=== PATIENT | female | born 1985 | race African-American/Black ===

== ENCOUNTER 2016-09-11 01:03 | Inpatient (IN) | payer OTHER ==
[~2016-09-11] VITALS: Ht 170.2 cm; Wt 131.5 kg
[~2016-09-11 01:03] MED LIST: HYDROXYZINE HCL50 M1 PO; PANTOPRAZOLE SO40 M1 PO; TOPAMAX50 M1 PO
--- NOTE | 2016-09-11 10:20 | Operative Report ---
Operative/Inv Procedure Report Surgery Date: 09/11/16 Name of Procedure: Laparoscopic Gastric Bypass Pre-Operative Diagnosis: Morbid Obesity BMI 46, AYANA, GERD Post-Operative Diagnosis: Same Estimated Blood Loss: less than 50ml Surgeon/Addictions Counselor: RHEA BE DO, J. FREEMAN PA-S Anesthesia: general endotracheal tube IV Fluids: 1000 cc Drains: 10 Fr RUQ RENETTA Drain Specimens: none Complications: None Condition: Stable Operative Indication: This is a 30-year-old female presented to the office for workup for bariatric surgery. After appropriate workup was completed with discussed with the patient the band, the sleeve, and the gastric bypass. The patient chose to undergo a gastric bypass. All risks including but not limited to bleeding, infection, leak, stricture, marginal ulcer, injury to surrounding bowel/esophagus/stomach/ liver/spleen, long-term malabsorption/malnutrition, dumping syndrome, internal hernia/small bowel obstruction, DVT/PE, and mortality of 07/999 patients were discussed in detail. The patient understood everything and decided to proceed. Operative/Procedure Note Note: The patient was brought to the operating room and placed on the table in supine position. Venodyne dockings were placed and adequate general endotracheal anesthesia was obtained. The patient was prepped and draped in standard surgical fashion. Began the procedure by making a 2 cm transverse incision supraumbilically and slightly to the left of the midline. Then using a 12 mm clear Visiport and a 10 mm 0 laparoscope the abdominal cavity was accessed. Great care was taken to go through the anterior rectus sheath, the posterior rectus sheath, and through the peritoneum. Once we entered the peritoneum the abdominal cavity was insufflated to 15 mmHg. Upon initial examination no obvious gross pathology was seen. Accessory trocars were placed, 5 mm in the epigastrium for the Lukas liver retractor. The liver retractor was inserted and the liver was retracted anteriorly exposing the hiatus, no obvious hiatal hernia was seen. 5 mm ports were placed in the right and left upper quadrant, 5 mm left lateral port, and a 12 mm right lateral port. Began the procedure by mobilizing the angle of His and the left muna of the diaphragm. The stomach was retracted towards the feet and the peritoneum was lysed until the left muna was clearly visualized. We then brought our attention to the lesser curvature, and at the second vessel will began to accessing the retrogastric space. Was done using Harmonic scalpel maintaining hemostasis. Once the retrogastric space was accessed we began creating our pouch using 60 mm purple staple load 3. The pouch was created around an Fab tube. Once the pouch was completely disconnected from the gastric remnant we examined the staple lines, some bleeding was noted and that was controlled using endoclips. We then brought our attention to the small bowel, the omentum was retracted above the transverse colon and the ligament of Treitz was identified. The small bowel was run 50 cm and divided using 60 mm hampton staple load. 2 clips were placed on the proximal staple line which was the biliopancreatic limb. That limb was run to the ligament of Treitz to assure that that was the blind limb. Following this the omentum was divided using Harmonic scalpel. After the omentum was divided the small bowel was coming up to the gastric pouch with no tension. At that point an enterotomy was made 5 cm from the prior divided distal staple line, group home between the mesenteric and antimesenteric part. A gastrotomy was made anterior to the staple line. A side to side gastrojejunostomy was created using 45 mm purple staple load approximately 3-3-1/2 cm in diameter. The Fab tube was passed through the common enterotomy, and the common enterotomy was closed using 2-0 Vicryl suture in a running fashion, double layer. Following this the small bowel was clamped off distal to the anastomosis, and we preformed an air and a methylene blue leak test. No obvious leak was noted. All the methylene blue was suctioned out. The small bowel was then run 120 cm and an enterotomy was made on the antimesenteric side. Another enterotomy was made on the antimesenteric side of the biliopancreatic limb. A side to side functional end end jejunojejunostomy was created using 60 mm hampton staple load. The common enterotomy was closed using a 60 mm hampton staple load followed by a 45 mm hampton staple load. Some bleeding was noted from the staple line and that was controlled using endoclips as well. The mesenteric defect was closed using 2-0 Tycron suture in a running fashion. At that point we examined both anastomoses no obvious bleeding was noted and both appeared intact. A 10 Bengali RENETTA drain was placed through the right upper quadrant incision under the liver and over the spleen. All ports were removed under direct visualization, no obvious bleeding was noted. Skin was closed using 4-0 Monocryl. Steri-Strips and dressings were placed. The patient was successfully extubated and transferred to the recovery room in stable condition. The patient tolerated the procedure well with no complications. Findings: no hiatal hernia, 120 cm alimentary limb
--- NOTE | 2016-09-11 10:25 | Admission Core Measures ---
Admission Lab Results I reviewed the following labs: Laboratory Tests 09/11 609 Urines Urine Test NEGATIVE Admission Meds I reviewed the following Meds: Current Medications Sig/Moises Start time Last Medication Dose Stop Time Status Admin Cefazolin Sodium 3,000 MG ONCE 09/11 0000 NR (Kefzol-Ancef Inj) 09/11 2358 Heparin Sodium 5,000 UNIT ONCE 09/11 0000 NR (Porcine) 09/11 2358 Acute Coronary Syndrome Inclusion Criteria ACS Diagnosis No Inpatient Core Measures LDL Reminder: If No, please order W/I first 24hr of stay Congestive Heart Failure Inclusion Criteria CHF Diagnosis No Cerebrovascular accident Inclusion Criteria CVA/TIA Diagnosis No Inpatient Core Measures Bedside Swallow Eval Reminder: If BSE failed, place ST order Antithrombotic Reminder: Order Antithrombotic Medication by end of day 2 Antithrombotic Reminder: Document Reason Antithrombotic Not ordered by end of day 2 AFIB/Flutter Reminder: If Present, add to problem list AFIB/Flutter Reminder: Order Anticoag Medication for pts with AFIB/Flutter Atherosclerosis Reminder: If Present, add to problem list LDL Reminder: If No, please order W/I first 24hr of stay PT Order Reminder: If No, please order Venous thromboembolism Inpatient Core Measures VTE Risk Factors: Obesity, Surgery No Mech VTE prophylaxis d/t No contraindications No VTE Pharm Prophylaxis d/t No contraindications Inclusion Criteria - Per Current guidelines, there needs to be overlap - treatment for the first 5 days of Warfarin therapy. - Parenteral Anticoagulation (IV or SC) needs to be - given along with Warfarin therapy. VTE Diagnosis No VTE Type NONE VTE Confirmed by (Test) NONE Problem List As ranked by this Provider includes Assessment & Plan 1. S/P gastric bypass HOME MEDS Home Med List Hydroxyzine HCl 50 MG TABLET 1 TAB PO QPM SLEEP (Reported) Pantoprazole Sodium 40 MG TABLET.DR 1 TAB PO DAILY RELUX (Reported) Topiramate (Topamax) 50 MG TABLET 1 TAB PO BID MIGRAINES (Reported)
[2016-09-11] MEDS ORDERED: LOVENOX40 MG/0.1 SC (10:44)
[2016-09-11] MEDS ORDERED: HYCET 7.5 MG-3473 ML PO (10:45)
--- NOTE | 2016-09-11 10:48 | Patient Discharge Instructions ---
Discharge Instructions General Discharge Information You were seen/treated for: Morbid obesity You had these procedures: Laparoscopic gastric bypass Watch for these problems: Significantly increased pain, nausea, or fevers. Increased redness or drainage from around the incisions Chest pain or difficulty breathing No bath, but you may shower: Yes Other wound care: Remove dressings the day after you get home leaving white strips on until seen by your surgeon. Special Instructions: See printed information packet Ambulate frequently May use Gas-X for gas pain Diet Recommended Diet: Bariatric Activity Activity Self Limited: Yes Pounds, do NOT lift more than: 10 Acute Coronary Syndrome Inclusion Criteria At DC or during hospital stay patient has or had the following: ACS DIAGNOSIS No Discharge Core Measures Meds if any: Prescribed or Continued at Discharge Meds if any: NOT Prescribed or Continued at Discharge Congestive Heart Failure Inclusion Criteria At DC or during hospital stay patient has or had the following: CHF DIAGNOSIS No Discharge Core Measures Meds if any: Prescribed or Continued at Discharge Meds if any: NOT Prescribed or Continued at Discharge Cerebrovascular accident Inclusion Criteria At DC or during hospital stay patient has or had the following: CVA/TIA Diagnosis No Discharge Core Measures Meds if any: Prescribed or Continued at Discharge Meds if any: NOT Prescribed or Continued at Discharge Venous thromboembolism Inclusion Criteria VTE Diagnosis No VTE Type NONE VTE Confirmed by (Test) NONE Discharge Core Measures - Per Current guidelines, there needs to be overlap - treatment for the first 5 days of Warfarin therapy. - If discharged on Warfarin prior to 5 days of - overlap therapy, the patient will need to be - assessed for post discharge needs including - *Post discharge parental anticoagulation - *Warfarin and/or parental anticoagulation education - *Follow up date to check INR post discharge At least 5 days overlap therapy as Inpatient No Meds if any: Prescribed or Continued at Discharge Note: Overlap Therapy is Warfarin and Anticoagulant Meds if any: NOT Prescribed or Continued at Discharge
--- NOTE | 2016-09-11 10:49 | Surg Short-stay <48hrs Dis Sum ---
Visit Information Visit Dates Admission Date: 09/11/16 Discharge Date: 09/13/16 Surgical Short Stay DC Summary Admission Diagnosis: Morbid obesity Final Diagnosis: Same Procedure(s): Laparoscopic gastric bypass Summary/Significant Findings: The patient was admitted on 09/11/2016. She is brought to the operating theater where she underwent a laparoscopic gastric bypass. Postoperatively the patient progressed as expected, she tolerated a bariatric diet without nausea, and her pain was under adequate control. The patient was discharged with uneventful hospital course. Condition at Discharge: Stable Discharge Disposition: home or self care Discharge instructions provided to patient/family: Yes Post discharge follow-up plan: Call the office to be seen in one week.
[2016-09-11 12:43] VITALS: BP 126/78
--- NOTE | 2016-09-11 12:52 | PN- Bariatrics ---
Subjective Subjective: The patient was seen this evening postoperatively. She complains of some mild epigastric soreness but has no other complaints otherwise. She denies any chest pain or difficulty breathing. She is tolerating sips of a stage I diet without nausea. Objective Vital Signs and I&Os Vital Signs Date Time Temp Pulse Resp B/P Pulse O2 O2 Flow FiO2 Ox Delivery Rate 09/11 1243 97.0 101 16 126/78 96 Room Air 09/11 1243 96 Room Air I's and O's: 2300 ML's in of lactated Ringer's/patient is due to void/60 ML's out via RENETTA/EBL minimal Physical Exam: Gen.: Alert and in no obvious distress Skin: Warm and dry Cardiac: S1 and S2 regular Pulmonary: Bilateral breath sounds are equal and decreased at bases Abdomen: Soft, obese, appropriate incisional tenderness, bowel sounds positive. Port sites are clean, dry, and intact. There is a RENETTA 1 holding suction with serosanguineous drainage in the bulb. Extremities: Bilateral lower extremities are warm without calf tenderness or significant edema. Assessment/Plan Assessment/Plan Assessment: 30-year-old female status post laparoscopic gastric bypass. Postoperatively the patient is progressing as expected, her pain is under adequate control, and she is tolerating a stage I diet without nausea. Plan: The patient will be nothing by mouth past midnight for an upper GI series in the morning Continue IV hydration and monitor for postoperative void 2 doses of postoperative prophylactic antibiotics GI and DVT prophylaxis Continue current pain regiment Out of bed and ambulate Total respiratory care for CPAP and IST Resume home medications Lovenox education Core Measures/Miscellaneous Venous Thromboembolism VTE Risk Factors: Age > 40, Obesity, Surgery VTE Contraindications: No Contraindications VTE Diagnosis: No VTE Type: NONE VTE Confirmed by (Test): NONE Beta Danyel Is Beta Danyel a Home Med? No Antibiotics Is Patient on Antibiotics? Yes If Yes: prophylaxis
[2016-09-11 22:32] VITALS: BP 118/64
--- NOTE | 2016-09-12 07:23 | PN- Bariatrics ---
Subjective Subjective: The patient was seen this morning postoperatively day #1. She reports her pain is in adequate control and she denies any nausea at the current time. She has no other complaints and is ambulating well. She denies any chest pain or difficulty breathing. Objective Vital Signs and I&Os Vital Signs Date Time Temp Pulse Resp B/P Pulse O2 O2 Flow FiO2 Ox Delivery Rate 09/12 0600 97 Room Air 09/11 2232 97.8 89 20 118/64 96 Room Air 09/11 2200 97 Room Air 09/11 1800 95 Room Air 09/11 1600 96 Room Air 09/11 1436 Room Air Room Air / 1243 97.0 101 16 126/78 96 Room Air 09/11 1243 96 Room Air Intake & Output 09/12 08/ 0000 09/11 1600 09/11 0800 / 0000 / 1600 Intake Total 1000 2675 Output Total 45 400 90 Balance 955 -400 2585 Intake, IV 1000 2675 Intake, Oral 0 Output, 45 90 Drainage Output, Urine 400 Patient 290 lb Weight Physical Exam: Gen.: Alert and in no obvious distress Skin: Warm and dry Abdomen: Soft, obese, appropriate incisional tenderness, bowel sounds sluggish. Port sites clean, dry, and intact without signs of infection. There is a RENETTA 1 holding suction with serosanguineous drainage and bulb. Extremities: Bilateral lower extremities are warm without calf tenderness or significant edema. Assessment/Plan Assessment/Plan Assessment: 30-year-old female status post laparoscopic gastric bypass postoperative day #1. The patient is progressing as expected and her pain is under adequate control. Plan: Keep nothing by mouth for upper GI this morning if negative the patient be restarted on a stage I diet Follow up morning laboratory studies Continue on current pain regiment Keep RENETTA is self suction GI and DVT prophylaxis and Lovenox education Out of bed and ambulate Total respiratory care and incentive spirometry Core Measures/Miscellaneous Venous Thromboembolism VTE Risk Factors: Age > 40, Obesity, Surgery VTE Contraindications: No Contraindications VTE Diagnosis: No VTE Type: NONE VTE Confirmed by (Test): NONE Beta Danyel Is Beta Danyel a Home Med? No Antibiotics Is Patient on Antibiotics? No
[2016-09-12 07:31] VITALS: BP 120/88
--- NOTE | 2016-09-12 08:03 | NUR ---
NURSE NOTE: PT EDUCATED ON LOVENOX FOR HOME USE. LOVENOX KIT GIVEN. PT DEMONSTARTED SELF ADMINSTRATION OF LOVENOX.
[2016-09-12 08:06] LABS: ABSOLUTE BASOPHIL COUNT 0 /CUMM (0.0-0.2); ABSOLUTE EOSINOPHIL COUNT 0 /CUMM (0.0-0.7); ABSOLUTE GRANULOCYTE CT 8.2 /CUMM (1.4-6.5); BASOPHIL % 0.3 % (0.0-2.0); EOSINOPHIL % 0.1 % (0-5); MEAN PLATELET VOLUME 8.4 FL (7.4-10.4)
[2016-09-12 08:50] LABS: ABSOLUTE MONOCYTE COUNT 0.9 /CUMM (0.10-0.60); GRANULOCYTE % 67.5 % (42.2-75.2); MEAN CORPUSCULAR HGB 29.2 PG (27.0-31.0); MEAN CORPUSCULAR VOLUME 88.6 FL (81.0-99.0); PLATELET COUNT 334 /CUMM (130-400); RBC DISTRIBUTION WIDTH 13.8 % (11.5-14.5); RED BLOOD CELL CT 4.09 /CUMM (4.20-5.40)
[2016-09-12 08:57] LABS: WHITE BLOOD CELL COUNT 12.2 /CUMM (4.8-10.8)
[2016-09-12 08:58] LABS: HEMATOCRIT 36.3 % (37-47)
--- NOTE | 2016-09-12 10:43 | RADIOLOGY REPORT ---
EXAMINATION: FLUOROSCOPY UPPER GI WITH GASTROGRAFIN CLINICAL INFORMATION: 1 day status post gastric bypass study. Postoperative evaluation. COMPARISON: None. TECHNIQUE: A limited Gastrografin upper GI study was performed using 30 ml of Gastroview with the patient in the semiupright position. Multiple spot films were acquired. FINDINGS: The preliminary candle wicker view of the abdomen performed on 2 images demonstrate a drain and postsurgical odette in the upper abdomen. Mild gaseous distention of bowel loops is seen without abnormal bowel distention seen. Esophageal distensibility and motility is normal. The GE junction is located below the level of the diaphragm and no GE reflux seen. The remnant gastric pouch is normal with no abnormal distention or contrast leak seen. There is prompt emptying of contrast into the anastomosed small bowel, which is unremarkable in appearance. FLUOROSCOPY TIME: 45 seconds. IMPRESSION: Unremarkable examination.
[2016-09-12 14:23] VITALS: BP 132/80
[2016-09-12 22:26] VITALS: BP 124/82
[2016-09-13 06:12] VITALS: BP 113/64
--- NOTE | 2016-09-13 07:43 | PN- Bariatrics ---
Subjective Subjective: No complaints. Pain controlled. Tolerating stage 1 diet. No nausea. Passing flatus and +bm. Ambulating without difficulty. No dizzness. No shortness of breath. No chest pains. Voiding well. Objective Vital Signs and I&Os Vital Signs Date Time Temp Pulse Resp B/P Pulse O2 O2 Flow FiO2 Ox Delivery Rate 09/13 0512 97.7 67 20 113/64 96 Room Air 09/13 0600 96 Room Air 09/12 2226 98.5 79 20 124/82 97 Room Air 09/12 1423 98.0 85 20 132/80 94 09/12 1400 99 Room Air Intake & Output 09/13 0800 09/13 0000 09/12 1600 09/12 0800 09/12 0000 09/11 1600 Intake Total 90 6707 712 2268 2675 Output Total 480 900 645 45 400 90 Balance -390 600 -525 955 -400 2585 Intake, IV 600 1000 2675 Intake, Oral 90 900 120 0 Output, 30 45 90 Drainage Output, Urine 450 900 645 400 Patient 290 lb Weight Physical Exam: General - alert & oriented x 3. comfortable. no acute distress. Lungs - clear bilaterally. no w/r/r. Cardiac - s1s2. reg. Abdomen - soft. RENETTA drain with serosang drainage. dressings c/d/i. Extremities - warm bilaterally. no c/c/e. calves soft/nontender b/l. Assessment/Plan Assessment/Plan This 30-year-old female POD#2 s/p laparoscopic gastric bypass tolerating stage 1 diet. d/c iv fluids pain control as ordered d/c RENETTA drain f/u labs oob/ambulating lovenox teaching done d/c home today will d/w Core Measures/Miscellaneous Venous Thromboembolism VTE Risk Factors: Age > 40, Obesity, Surgery VTE Contraindications: No Contraindications VTE Diagnosis: No VTE Type: NONE VTE Confirmed by (Test): NONE Beta Danyel Is Beta Danyel a Home Med? No Antibiotics Is Patient on Antibiotics? No
[2016-09-13 07:59] LABS: ABSOLUTE BASOPHIL COUNT 0.1 /CUMM (0.0-0.2); ABSOLUTE EOSINOPHIL COUNT 0.1 /CUMM (0.0-0.7); ABSOLUTE GRANULOCYTE CT 4.8 /CUMM (1.4-6.5); ABSOLUTE LYMPH COUNT 3.1 /CUMM (1.2-3.4); ABSOLUTE MONOCYTE COUNT 0.7 /CUMM (0.10-0.60); BASOPHIL % 0.7 % (0.0-2.0); EOSINOPHIL % 1.4 % (0-5); GRANULOCYTE % 54.6 % (42.2-75.2); HEMATOCRIT 40.4 % (37-47); MEAN CORPUSCULAR HGB 28.8 PG (27.0-31.0); MEAN CORPUSCULAR HGB CONC 32.8 G/DL (33.0-37.0); MEAN CORPUSCULAR VOLUME 87.9 FL (81.0-99.0); MEAN PLATELET VOLUME 8.2 FL (7.4-10.4); PLATELET COUNT 334 /CUMM (130-400); RBC DISTRIBUTION WIDTH 13.8 % (11.5-14.5); WHITE BLOOD CELL COUNT 8.8 /CUMM (4.8-10.8)
--- NOTE | 2016-09-13 11:30 | NUR ---
NURSING NOTE: PATIENT WAS DISCHARGED AND LEFT THE HOSPITAL @ 1121.
== END 2016-09-13 11:21 | DRG 403 ==
LOC: ENRESERVTM → ENRESERVDT → SDA 01:03 → ENPENDDIS 01:03 → 2NB 01:03
PROVIDERS: Physician Assistant Surgical; ADMIT Surgery
PROC: 0D164ZA Bypass Stomach to Jejunum, Percutaneous Endoscopic Approach (ICD-10-PCS; principal; 2016-09-11)
DX: E66.01 Morbid (severe) obesity due to excess calories (principal); G47.33 Obstructive sleep apnea (adult) (pediatric); J45.909 Unspecified asthma, uncomplicated; K21.9 Gastro-esophageal reflux disease without esophagitis; Z68.42 Body mass index [BMI] 45.0-49.9, adult
CPT/HCPCS: 2NBP; 36415; 74240; 81025; 82436; 93005; 93010; J0690; J1170; J1644; J1650; J1885; J2405; J3490; J7042; S5012

== ENCOUNTER 2016-09-26 00:47 | Inpatient (IN) | payer OTHER ==
[~2016-09-26] VITALS: Ht 170.2 cm; Wt 124.7 kg
[~2016-09-26 00:47] MED LIST changes: +HYCET 7.5 MG-3473 ML PO; +LOVENOX40 MG/0.1 SC
--- NOTE | 2016-09-26 01:05 | ED GI/GU/ABDOMINAL COMPLAINT ---
History of Present Illness General Chief Complaint: Abdominal Pain/Flank Pain Stated Complaint: +N/V ABD PAIN S/P GASTRIC BYPASS 09/11/16 Source: patient, old records Exam Limitations: no limitations Vital Signs & Intake/Output Vital Signs & Intake/Output Vital Signs Date Time Temp Pulse Resp B/P Pulse O2 O2 Flow FiO2 Ox Delivery Rate 09/26 0143 98 Room Air 09/26 0101 97.8 87 16 118/82 98 Room Air Allergies Coded Allergies: No Known Allergies (09/10/16) Reconcile Medications Enoxaparin Sodium (Lovenox) 40 MG/0.4 ML SYRINGE 1 SYR SC DAILY BLOOD THINNER PATIENT HAS PERSCRIPTION AT HOME Hydrocodone/Acetaminophen (Hycet 7.5 MG-325 MG/15 Ml Soln) 7.5 MG-325 MG/15 ML SOLUTION 15 ML PO Q4-6P PRN PAIN Hydroxyzine HCl 50 MG TABLET 1 TAB PO QPM SLEEP (Reported) Pantoprazole Sodium 40 MG TABLET.DR 1 TAB PO DAILY RELUX (Reported) Topiramate (Topamax) 50 MG TABLET 1 TAB PO BID MIGRAINES (Reported) Triage Note: 30yo FEMALE TO TRIAGE W/CO NAUSEA WITH ABD PAIN AND CONSTIPATION. STATES "SHE HAD GASTRIC BYPASS ON 09/11/16 HERE AT [facility]" . Triage Nurses Notes Reviewed? yes ? N Is pt currently ? No HPI: Patient had a laparoscopic gastric bypass on 09/11/2016. Patient states that since the surgery she has been constipated. Patient started taking milk of magnesia and had a bowel movement yesterday. After taking milk of magnesia today she began vomiting. Patient has been unable to tolerate anything by mouth all day because of vomiting. Patient also states that she has been having epigastric and chest pain radiates into the back since yesterday. The pain is constant. There are no aggravating or mitigating factors. Radiates as noted above. The pain is 10 out of 10. Patient also feels short of breath. Patient denies any fevers or chills. Past History Travel History Traveled to [place] past 21 day No Medical History Any Pertinent Medical History? 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 No Review of Systems Review of Systems Constitutional: Reports: no symptoms. EENTM: Reports: no symptoms. Respiratory: Reports: no symptoms. Cardiovascular: Reports: no symptoms. GI: Reports: see HPI, abdominal pain, nausea, vomiting. Genitourinary: Reports: no symptoms. Musculoskeletal: Reports: no symptoms. Skin: Reports: no symptoms. Neurological/Psychological: Reports: no symptoms. Hematologic/Endocrine: Reports: no symptoms. Immunologic/Allergic: Reports: no symptoms. All Other Systems: Reviewed and Negative Physical Exam Physical Exam General Appearance: well developed/nourished, alert, awake, anxious, moderate distress Head: atraumatic, normal appearance Eyes: Bilateral: PERRL, EOMI. Ears, Nose, Throat, Mouth: hearing grossly normal, DRY MUCOSA Neck: normal inspection, supple, full range of motion Respiratory: normal breath sounds, chest non-tender, no respiratory distress, lungs clear Cardiovascular: regular rate/rhythm, normal peripheral pulses Gastrointestinal: soft, non-tender, no organomegaly, abnormal bowel sounds ( DEVREASED) Back: normal inspection, normal range of motion Extremities: normal range of motion Neurologic/Psych: no motor/sensory deficits, alert, oriented x 3, normal mood/ affect Skin: intact, normal color, warm/dry Core Measures ACS in differential dx? Yes ASA ordered for poss ACS? No-ACS ruled out Severe Sepsis Present: No Septic Shock Present: No Progress Differential Diagnosis: AMI, bowel obstruction, ischemic bowel, inflamm bowel dis, peptic ulcer, PUD/GERD, PE, ANASTOMTIC LEAK Plan of Care: Orders Procedure Date/time Status Admit to inpatient 09/26 0341 Active TROPONIN LEVEL 09/26 0130 Complete EKG 09/26 0119 Active LIPASE 09/26 0101 Complete COMPREHENSIVE METABOLIC PANEL 09/26 0101 Complete CBC WITHOUT DIFFERENTIAL 09/26 010 Complete AMYLASE 09/26 010 Complete Current Medications Sig/Moises Start time Last Medication Dose Stop Time Status Admin Ondansetron HCl 4 MG ONCE ONE 09/26 344 UNVr (Zofran) 09/26 034 Sodium Chloride 1,000 ML BOLUS ONE 09/26 344 UNVr (Normal Saline 0.9%) 09/26 0444 Laboratory Tests 09/26/16 0130: Anion Gap 13, Estimated GFR > 60, BUN/Creatinine Ratio 10.0, Glucose 94, Calcium 9.8, Total Bilirubin 0.6, AST 26, ALT 53 H, Alkaline Phosphatase 85, Troponin I < 0.01, Total Protein 7.6, Albumin 4.4, Globulin 3.2, Albumin/Globulin Ratio 1.4 , Amylase 69, Lipase 177, CBC w Diff NO MAN DIFF REQ, RBC 5.20, MCV 87.9, MCH 28.7, RDW 13.3, MPV 8.7, Gran % 52.1, Lymphocytes % 35.9, Monocytes % 7.2, Eosinophils % 4.2, Basophils % 0.6, Absolute Granulocytes 4.1, Absolute Lymphocytes 2.8, Absolute Monocytes 0.6, Absolute Eosinophils 0.3, Absolute Basophils 0, PUBS MCHC 32.7 L 09/26/16 0119: Troponin I Cancelled Diagnostic Imaging: Viewed by Me: CT Scan. Discussed w/RAD: CT Scan. Radiology Impression: PATIENT: HERO RODRIGUEZ PRESENT AGE: 30 PATIENT ACCOUNT NO: [id number] : 84 LOCATION: [facility] ORDERING PHYSICIAN: HIPOLITO DAIGLE MD SERVICE DATE: 09/26/16 EXAM TYPE: CAT - CT ABD & PELVIS W ORAL & IV CO; CTA CHEST-PULMONARY EMBOLISM EXAMINATION: 1. CTA chest: 2. CT ABDOMEN AND PELVIS WITH CONTRAST CLINICAL INFORMATION: Chest pain. Shortness of breath. 2 weeks Status post gastric bypass. Epigastric pain radiating to the back for 2 weeks. COMPARISON: None. TECHNIQUE: A noncontrast localizer was performed, followed by the administration of 67 mL Optiray [address] of the chest was then performed. Coronal and sagittal reformatted and 3-D technique MIP images of the chest were completed at the CT scanner and reviewed on the PACS workstation. No adverse effects were reported. Images were then performed through the abdomen and pelvis. Coronal and sagittal reformatted images performed at CT scanner by technologist. DLP: 1848.04 mGy-cm. FINDINGS: 1. CTA CHEST; VASCULAR: The main pulmonary artery, secondary and tertiary branches of the pulmonary artery are normally opacified with no evidence of pulmonary embolism. The aorta and great vessels are unremarkable. MEDIASTINUM: No mediastinal mass. No significant lymphadenopathy. There is no pericardial effusion. LUNGS: The lungs are clear. No nodule or infiltrate. Central bronchial airways open. FLUID: There is no pericardial effusion. There is no pleural effusion. AXILLA: No significant lymphadenopathy. 2. CT SCAN ABDOMEN PELVIS: LIVER, GALLBLADDER, AND BILIARY TREE: The liver is normal in size, shape, and attenuation. No focal hepatic lesion or biliary ductal dilatation is present. The gallbladder is unremarkable with no evidence of radiopaque gallstones, gallbladder wall thickening, or obvious pericholecystic inflammatory changes. PANCREAS: Unremarkable. SPLEEN: Unremarkable. ADRENAL GLANDS: Unremarkable. KIDNEYS AND URETERS: The kidneys are normal in size, shape, and attenuation. No hydronephrosis, hydroureter, or calculi seen. No perinephric stranding. BLADDER: Unremarkable. GASTROINTESTINAL TRACT: Status post gastric bypass. There is oral contrast in the esophagus and gastric pouch. Contrast seen flowing into the proximal small bowel loops with no extravasation. The small bowel loops proximal to the small bowel anastomosis in the left upper quadrant is mildly dilated and contains fecal like material consistent with low motility or partial obstruction. The small bowel more distal are of normal caliber. There is air and stool throughout normal appearing large bowel loops. The appendix is normal. ABDOMINAL WALL: No significant hernia is appreciated. LYMPH NODES: Normal. VASCULAR: Unremarkable. PELVIC VISCERA: Unremarkable. OSSEOUS STRUCTURES: Unremarkable. IMPRESSION: 1. CT chest. No evidence of pulmonary embolism. No acute change. 2. CT abdomen pelvis: Status post gastric bypass. The small bowel loops proximal to the small bowel anastomosis is slightly dilated containing fecal-like material consistent with low motility or perhaps partial small bowel obstruction but there is no extravasation or inflammation. DICTATED BY: MIGUEL SHEA MD DATE/TIME DICTATED: 09/26/16300 OUTSOLE FLEXER:PAULA DATE/TIME TRANSCRIBED:09/26/16300 CONFIDENTIAL, DO NOT COPY WITHOUT APPROPRIATE AUTHORIZATION. <Electronically signed in Other Vendor System> SIGNED BY: MIGUEL SHEA MD 09/26/16 0314 Initial ED EKG: NSR, no ST T wave changes Prior EKG: unchanged Departure Departure Disposition: STILL A PATIENT Condition: Guarded Clinical Impression Primary Impression: Small bowel obstruction Referrals: HAROON PATINO,GATO Yarbrough (PCP/Family) Departure Forms: Customer Survey General Discharge Information Admission Note Spoke With: RHEA BE DO Documentation of Exam: Documentation of any treatments & extenuating circumstances including Concerns Regarding Discharge (functional status, medication knowledge or non-compliance, living conditions, etc.) that warrant an admission rather than observation: [NPO , IV FLUIDS, SURGICAL EVALUATION.]
[2016-09-26 01:45] LABS: ABSOLUTE BASOPHIL COUNT 0 /CUMM (0.0-0.2); ABSOLUTE EOSINOPHIL COUNT 0.3 /CUMM (0.0-0.7); ABSOLUTE GRANULOCYTE CT 4.1 /CUMM (1.4-6.5); ABSOLUTE LYMPH COUNT 2.8 /CUMM (1.2-3.4); ABSOLUTE MONOCYTE COUNT 0.6 /CUMM (0.10-0.60); BASOPHIL % 0.6 % (0.0-2.0); EOSINOPHIL % 4.2 % (0-5); GRANULOCYTE % 52.1 % (42.2-75.2); HEMATOCRIT 45.7 % (37-47); MEAN CORPUSCULAR HGB 28.7 PG (27.0-31.0); MEAN CORPUSCULAR HGB CONC 32.7 G/DL (33.0-37.0); MEAN CORPUSCULAR VOLUME 87.9 FL (81.0-99.0); MEAN PLATELET VOLUME 8.7 FL (7.4-10.4); PLATELET COUNT 379 /CUMM (130-400); RBC DISTRIBUTION WIDTH 13.3 % (11.5-14.5); WHITE BLOOD CELL COUNT 7.8 /CUMM (4.8-10.8)
--- NOTE | 2016-09-26 03:14 | CT SCAN REPORT ---
EXAMINATION: 1. CTA chest: 2. CT ABDOMEN AND PELVIS WITH CONTRAST CLINICAL INFORMATION: Chest pain. Shortness of breath. 2 weeks Status post gastric bypass. Epigastric pain radiating to the back for 2 weeks. COMPARISON: None. TECHNIQUE: A noncontrast localizer was performed, followed by the administration of 67 mL Optiray [address] of the chest was then performed. Coronal and sagittal reformatted and 3-D technique MIP images of the chest were completed at the CT scanner and reviewed on the PACS workstation. No adverse effects were reported. Images were then performed through the abdomen and pelvis. Coronal and sagittal reformatted images performed at CT scanner by technologist. DLP: 1848.04 mGy-cm. FINDINGS: 1. CTA CHEST; VASCULAR: The main pulmonary artery, secondary and tertiary branches of the pulmonary artery are normally opacified with no evidence of pulmonary embolism. The aorta and great vessels are unremarkable. MEDIASTINUM: No mediastinal mass. No significant lymphadenopathy. There is no pericardial effusion. LUNGS: The lungs are clear. No nodule or infiltrate. Central bronchial airways open. FLUID: There is no pericardial effusion. There is no pleural effusion. AXILLA: No significant lymphadenopathy. 2. CT SCAN ABDOMEN PELVIS: LIVER, GALLBLADDER, AND BILIARY TREE: The liver is normal in size, shape, and attenuation. No focal hepatic lesion or biliary ductal dilatation is present. The gallbladder is unremarkable with no evidence of radiopaque gallstones, gallbladder wall thickening, or obvious pericholecystic inflammatory changes. PANCREAS: Unremarkable. SPLEEN: Unremarkable. ADRENAL GLANDS: Unremarkable. KIDNEYS AND URETERS: The kidneys are normal in size, shape, and attenuation. No hydronephrosis, hydroureter, or calculi seen. No perinephric stranding. BLADDER: Unremarkable. GASTROINTESTINAL TRACT: Status post gastric bypass. There is oral contrast in the esophagus and gastric pouch. Contrast seen flowing into the proximal small bowel loops with no extravasation. The small bowel loops proximal to the small bowel anastomosis in the left upper quadrant is mildly dilated and contains fecal like material consistent with low motility or partial obstruction. The small bowel more distal are of normal caliber. There is air and stool throughout normal appearing large bowel loops. The appendix is normal. ABDOMINAL WALL: No significant hernia is appreciated. LYMPH NODES: Normal. VASCULAR: Unremarkable. PELVIC VISCERA: Unremarkable. OSSEOUS STRUCTURES: Unremarkable. IMPRESSION: 1. CT chest. No evidence of pulmonary embolism. No acute change. 2. CT abdomen pelvis: Status post gastric bypass. The small bowel loops proximal to the small bowel anastomosis is slightly dilated containing fecal-like material consistent with low motility or perhaps partial small bowel obstruction but there is no extravasation or inflammation.
--- NOTE | 2016-09-26 05:47 | Admission Core Measures ---
Admission Lab Results I reviewed the following labs: Laboratory Tests 09/26 09/26 0130 0119 Chemistry Sodium (137 - 145 mmol/L) 141 Potassium (3.5 - 5.1 mmol/L) 3.8 Chloride (98 - 107 mmol/L) 104 Carbon Dioxide (22 - 30 mmol/L) 24 Anion Gap (5 - 16) 13 BUN (7 - 17 mg/dL) 10 Creatinine (0.5 - 1.0 mg/dL) 1.0 Estimated GFR (>60 ml/min) > 60 BUN/Creatinine Ratio (7 - 25 %) 10.0 Glucose (65 - 99 mg/dL) 94 Calcium (8.4 - 10.2 mg/dL) 9.8 Total Bilirubin (0.2 - 1.3 mg/dL) 0.6 AST (14 - 36 U/L) 26 ALT (9 - 52 U/L) 53 H Alkaline Phosphatase (<127 U/L) 85 Troponin I (< 0.11 ng/ml) < 0.01 Cancelled Total Protein (6.3 - 8.2 g/dL) 7.6 Albumin (3.5 - 5.0 g/dL) 4.4 Globulin (1.9 - 4.2 gm/dL) 3.2 Albumin/Globulin Ratio (1.1 - 2.2 %) 1.4 Amylase (30 - 110 U/L) 69 Lipase (23 - 300 U/L) 177 Hematology CBC w Diff NO MAN DIFF REQ WBC (4.8 - 10.8 /CUMM) 7.8 RBC (4.20 - 5.40 /CUMM) 5.20 Hgb (12.0 - 16.0 G/DL) 14.9 Hct (37 - 47 %) 45.7 MCV (81.0 - 99.0 FL) 87.9 MCH (27.0 - 31.0 PG) 28.7 RDW (11.5 - 14.5 %) 13.3 Plt Count (130 - 400 /CUMM) 379 MPV (7.4 - 10.4 FL) 8.7 Gran % (42.2 - 75.2 %) 52.1 Lymphocytes % (20.5 - 51.1 %) 35.9 Monocytes % (1.7 - 9.3 %) 7.2 Eosinophils % (0 - 5 %) 4.2 Basophils % (0.0 - 2.0 %) 0.6 Absolute Granulocytes (1.4 - 6.5 /CUMM) 4.1 Absolute Lymphocytes (1.2 - 3.4 /CUMM) 2.8 Absolute Monocytes (0.10 - 0.60 /CUMM) 0.6 Absolute Eosinophils (0.0 - 0.7 /CUMM) 0.3 Absolute Basophils (0.0 - 0.2 /CUMM) 0 PUBS MCHC (33.0 - 37.0 G/DL) 32.7 L Admission Meds I reviewed the following Meds: Current Medications Sig/Moises Start time Last Medication Dose Stop Time Status Admin Enoxaparin Sodium 40 MG DAILY 09/26 1000 AC (Lovenox) Morphine Sulfate 4 MG Q4 HRS NEEDED PRN 09/26 0545 UNVr (Morphine) Ondansetron HCl 4 MG Q8P PRN 09/26 0515 AC (Zofran) Acute Coronary Syndrome Inclusion Criteria ACS Diagnosis No Inpatient Core Measures LDL Reminder: If No, please order W/I first 24hr of stay Congestive Heart Failure Inclusion Criteria CHF Diagnosis No Cerebrovascular accident Inclusion Criteria CVA/TIA Diagnosis No Inpatient Core Measures Bedside Swallow Eval Reminder: If BSE failed, place ST order Antithrombotic Reminder: Order Antithrombotic Medication by end of day 2 Antithrombotic Reminder: Document Reason Antithrombotic Not ordered by end of day 2 AFIB/Flutter Reminder: If Present, add to problem list AFIB/Flutter Reminder: Order Anticoag Medication for pts with AFIB/Flutter Atherosclerosis Reminder: If Present, add to problem list LDL Reminder: If No, please order W/I first 24hr of stay PT Order Reminder: If No, please order Venous thromboembolism Inpatient Core Measures VTE Risk Factors: Age > 40, Obesity No [facility] VTE prophylaxis d/t No contraindications No VTE Pharm Prophylaxis d/t No contraindications Inclusion Criteria - Per Current guidelines, there needs to be overlap - treatment for the first 5 days of Warfarin therapy. - Parenteral Anticoagulation (IV or SC) needs to be - given along with Warfarin therapy. VTE Diagnosis No VTE Type NONE VTE Confirmed by (Test) NONE Problem List As ranked by this Provider includes Assessment & Plan 1. Partial obstruction of small intestine HOME MEDS Home Med List Enoxaparin Sodium (Lovenox) 40 MG/0.4 ML SYRINGE 1 SYR SC DAILY BLOOD THINNER Hydrocodone/Acetaminophen (Hycet 7.5 MG-325 MG/15 Ml Soln) 7.5 MG-325 MG/15 ML SOLUTION 15 ML PO Q4-6P PRN PAIN Hydroxyzine HCl 50 MG TABLET 1 TAB PO QPM SLEEP (Reported) Pantoprazole Sodium 40 MG TABLET.DR 1 TAB PO DAILY RELUX (Reported) Topiramate (Topamax) 50 MG TABLET 1 TAB PO BID MIGRAINES (Reported)
--- NOTE | 2016-09-26 05:58 | History & Physical ---
JULIETA MAY 09/26/16 0548: General Information and HPI MD Statement: I have seen and personally examined HERO HATFIELD and documented this H&P. The patient is a 30 year old F who presented with a patient stated chief complaint of [nausea and vomiting]. Source of Information: patient Exam Limitations: no limitations History of Present Illness: Mrs. Hatfield is a 30-year-old female who is status post left gastric bypass on presents with a 2 day history of nausea and vomiting with food. He states that she was on a liquid protein diet since her surgery. She had no issues with this diet. She was evaluated by Dr. Shaikh on September 19 and was doing well at that time. Although she had some nausea prior to starting a pur ed diet yesterday she attempted pured carrots and chicken but vomited everything. She states that she had a normal bowel movement 1 day after she left the hospital and 1 day last week Friday. She has not had a bowel movement since then. She has no urinary complaints at this time. While here in the emergency room she also vomited a portion of the by mouth CT contrast. She has no other complaints at this time. Allergies/Medications Allergies: Coded Allergies: No Known Allergies (09/10/16) Home Med list Enoxaparin Sodium (Lovenox) 40 MG/0.4 ML SYRINGE 1 SYR SC DAILY BLOOD THINNER PATIENT HAS PERSCRIPTION AT HOME Hydrocodone/Acetaminophen (Hycet 7.5 MG-325 MG/15 Ml Soln) 7.5 MG-325 MG/15 ML SOLUTION 15 ML PO Q4-6P PRN PAIN Hydroxyzine HCl 50 MG TABLET 1 TAB PO QPM SLEEP (Reported) Pantoprazole Sodium 40 MG TABLET.DR 1 TAB PO DAILY RELUX (Reported) Topiramate (Topamax) 50 MG TABLET 1 TAB PO BID MIGRAINES (Reported) Past History Travel History Traveled to [place] past 21 day No Medical History Neurological: NONE EENT: NONE Cardiovascular: NONE Respiratory: asthma, obstructive sleep apnea Gastrointestinal: GERD Hepatic: NONE Renal: RENAL CALCULI Musculoskeletal: NONE Psychiatric: NONE Endocrine: NONE Blood Disorders: NONE Cancer(s): NONE SHEET TESTER/Reproductive: NONE History of MRSA: No History of VRE: No History of CDIFF: No Influenza Vaccine: 04/15/16 Surgical History Surgical History: cholecystectomy, ENDOSCOPY LAP GASTRIC BYPASS LAP GASTRIC BYPASS 09/11/16 Past Family/Social History Psychosocial History ETOH Use: denies use Illicit Drug Use: denies illicit drug use Review of Systems Review of Systems Constitutional: Denies: no symptoms, see HPI, chills, diaphoresis, fever, malaise, weakness, unexplained weight loss. Exam & Diagnostic Data Last 24 Hrs of Vital Signs/I&O Vital Signs Date Time Temp Pulse Resp B/P Pulse O2 O2 Flow FiO2 Ox Delivery Rate 09/26 0532 97.6 84 16 98/64 99 Room Air 09/26 0143 98 Room Air 09/26 0101 97.8 87 16 118/82 98 Room Air Intake & Output 09/26 0800 09/26 0000 09/25 1600 Intake Total 2000 Output Total Balance 1999 Intake, IV 2000 Patient 274 lb Weight Physical Exam General Appearance Alert, Oriented X3, Cooperative Skin No Rashes HEENT PERRLA Cardiovascular Regular Rate, Normal S1, Normal S2 Lungs Clear to Auscultation Abdomen Soft, No Tenderness Neurological Normal Gait, Normal Speech, Strength at 5/5 X4 Ext Extremities No Edema, Normal Pulses Vascular Pulses Symmetrical Last 24 Hrs of Labs/Michael: Laboratory Tests 09/26/16 0130: Anion Gap 13, Estimated GFR > 60, BUN/Creatinine Ratio 10.0, Glucose 94, Calcium 9.8, Total Bilirubin 0.6, AST 26, ALT 53 H, Alkaline Phosphatase 85, Troponin I < 0.01, Total Protein 7.6, Albumin 4.4, Globulin 3.2, Albumin/Globulin Ratio 1.4 , Amylase 69, Lipase 177, CBC w Diff NO MAN DIFF REQ, RBC 5.20, MCV 87.9, MCH 28.7, RDW 13.3, MPV 8.7, Gran % 52.1, Lymphocytes % 35.9, Monocytes % 7.2, Eosinophils % 4.2, Basophils % 0.6, Absolute Granulocytes 4.1, Absolute Lymphocytes 2.8, Absolute Monocytes 0.6, Absolute Eosinophils 0.3, Absolute Basophils 0, PUBS MCHC 32.7 L 09/26/16 0119: Troponin I Cancelled Diagnostic Data Other Results SERVICE DATE: 09/26/16 EXAM TYPE: CAT - CT ABD & PELVIS W ORAL & IV CO; CTA CHEST-PULMONARY EMBOLISM EXAMINATION: 1. CTA chest: 2. CT ABDOMEN AND PELVIS WITH CONTRAST CLINICAL INFORMATION: Chest pain. Shortness of breath. 2 weeks Status post gastric bypass. Epigastric pain radiating to the back for 2 weeks. COMPARISON: None. TECHNIQUE: A noncontrast localizer was performed, followed by the administration of 67 mL Optiray [address] of the chest was then performed. Coronal and sagittal reformatted and 3-D technique MIP images of the chest were completed at the CT scanner and reviewed on the PACS workstation. No adverse effects were reported. Images were then performed through the abdomen and pelvis. Coronal and sagittal reformatted images performed at CT scanner by technologist. DLP: 1848.04 mGy-cm. FINDINGS: 1. CTA CHEST; VASCULAR: The main pulmonary artery, secondary and tertiary branches of the pulmonary artery are normally opacified with no evidence of pulmonary embolism. The aorta and great vessels are unremarkable. MEDIASTINUM: No mediastinal mass. No significant lymphadenopathy. There is no pericardial effusion. LUNGS: The lungs are clear. No nodule or infiltrate. Central bronchial airways open. FLUID: There is no pericardial effusion. There is no pleural effusion. AXILLA: No significant lymphadenopathy. 2. CT SCAN ABDOMEN PELVIS: LIVER, GALLBLADDER, AND BILIARY TREE: The liver is normal in size, shape, and attenuation. No focal hepatic lesion or biliary ductal dilatation is present. The gallbladder is unremarkable with no evidence of radiopaque gallstones, gallbladder wall thickening, or obvious pericholecystic inflammatory changes. PANCREAS: Unremarkable. SPLEEN: Unremarkable. ADRENAL GLANDS: Unremarkable. KIDNEYS AND URETERS: The kidneys are normal in size, shape, and attenuation. No hydronephrosis, hydroureter, or calculi seen. No perinephric stranding. BLADDER: Unremarkable. GASTROINTESTINAL TRACT: Status post gastric bypass. There is oral contrast in the esophagus and gastric pouch. Contrast seen flowing into the proximal small bowel loops with no extravasation. The small bowel loops proximal to the small bowel anastomosis in the left upper quadrant is mildly dilated and contains fecal like material consistent with low motility or partial obstruction. The small bowel more distal are of normal caliber. There is air and stool throughout normal appearing large bowel loops. The appendix is normal. ABDOMINAL WALL: No significant hernia is appreciated. LYMPH NODES: Normal. VASCULAR: Unremarkable. PELVIC VISCERA: Unremarkable. OSSEOUS STRUCTURES: Unremarkable. IMPRESSION: 1. CT chest. No evidence of pulmonary embolism. No acute change. 2. CT abdomen pelvis: Status post gastric bypass. The small bowel loops proximal to the small bowel anastomosis is slightly dilated containing fecal-like material consistent with low motility or perhaps partial small bowel obstruction but there is no extravasation or inflammation. DICTATED BY: MIGUEL SHEA MD DATE/TIME DICTATED:09/26/16300 INSURANCE LOSS CONTROL SURVEYOR:PAULA DATE/TIME TRANSCRIBED:09/26/16300 Assessment/Plan Assessment: Ms. Hatfield is a 30-year-old female status post lap gastric bypass on 09/11/2016 who presents to [facility] emergency room with complaints of nausea and vomiting after meals. CAT scan evaluation of abdomen reveals dilated small bowel proximal to lap gastric bypass anastomosis, and stool. Reading is suggestive of partial small bowel obstruction with no extravasation of contrast at the anastomosis. Plan This case was discussed with Dr. Shaikh and recommends the following: Admit to surgical services under his care IV fluids/antiemetics Nothing by mouth DVT prophylaxis with Lovenox Bowel rest Dr. Shaikh will evaluate the patient in a.m. As Ranked By This Provider Problem List: 1. Partial obstruction of small intestine 2. S/P gastric bypass Core Measures/Miscellaneous Acute Coronary Syndrome ACS Diagnosis: No Cerebrovascular Accident CVA/TIA Diagnosis: No Congestive Heart Failure CHF Diagnosis: No Venous Thromboembolism VTE Risk Factors: Age > 40, Obesity No [facility] VTE prophylaxis d/t: No contraindications No VTE Pharm Prophylaxis d/t: No contraindications VTE Diagnosis: No VTE Type: NONE VTE Confirmed by (Test): NONE Severe Sepsis Severe Sepsis Present: No Septic Shock Septic Shock Present: No Miscellaneous Documentation Attending Case Discussed With: RHEA BE DO Primary Care Physician: GATO NIETO Patient sees these Specialists None Level of Patient Care: General Medicine RHEA BE DO 09/26/168: Attending MD Review Statement Attending Statement Attending MD Statement: examined this patient, discuss w/resident/PA/BRANCH SERVICE REPRESENTATIVE, agreed w/resident/PA/BRANCH SERVICE REPRESENTATIVE, reviewed images Attending Assessment/Plan: 2 week s/p LRYGB. Patient states she was making chicken and carrots in the crock pot and ate the carrots (which were soft) and subsequently developed pain/N/V. AVSS. Abd-soft. Labs ok. CT scan - likely a PSBO d/t food stuck at the JJ. Likely ate the carrots without chewing well and too fast/too much. AXR this afternoon shows all contrast on colon without dilated small bowel. Start Stage 2 , nutrition re-education in AM, OOB.
[2016-09-26 14:12] VITALS: BP 106/58
[2016-09-26 22:16] VITALS: BP 110/62
--- NOTE | 2016-09-26 23:24 | RADIOLOGY REPORT ---
EXAMINATION: XR ABDOMEN MULTIPLE VIEWS CLINICAL INDICATION: Nausea and vomiting. Status post gastric bypass 09/11/2016 COMPARISON: Upper GI series 09/12/2016. CT scan of abdomen 09/26/2016. TECHNIQUE: Supine upright abdomen FINDINGS: The prior CAT scan of 09/26/2016 was performed with oral contrast. This contrast now opacifies nondilated large bowel. There is no contrast retained in the small bowel loops. There is no gaseous distention of small bowel loops. Surgical clips in left upper quadrant. IMPRESSION: Nonobstructive bowel pattern. Status post surgery.
--- NOTE | 2016-09-27 06:37 | PN- Bariatrics ---
Subjective Subjective: Reports some continued abdominal discomfort and occasional nausea. Another episode of diarrhea last night. No longer vomiting since admission. No difficulty urinating. Denies dizziness. No shortness of breath. No chest pains. Objective Vital Signs and I&Os Vital Signs Date Time Temp Pulse Resp B/P Pulse O2 O2 Flow FiO2 Ox Delivery Rate 09/27 0128 76 95 09/27 0000 CPAP 09/26 2216 98.3 73 18 110/62 97 Room Air 09/26 2159 97 09/26 1412 97.8 69 20 106/58 98 09/26 0733 98.0 80 16 122/76 99 Room Air Intake & Output 09/27 0800 09/27 0000 09/26 1600 09/26 0800 09/26 0000 09/25 1600 Intake Total 920 3990 090 6803 Output Total 300 300 Balance 920 485 976 5596 Intake, IV 800 300 909 4606 Intake, Oral 120 360 100 Number 1 3 Bowel Movements Output, Stool 300 Output, Urine 300 Patient 275 lb 274 lb Weight Physical Exam: General - alert & oriented x 3. comfortable. no acute distress. Lungs - clear bilaterally. no w/r/r. Cardiac - s1s2. reg. Abdomen - soft. mildly tender in epigastric area. no acute abdominal findings Extremities - warm bilaterally. no c/c/e. calves soft and nontender b/l. Assessment/Plan Assessment/Plan This 30 year old female s/p gastric bypass on 09/11/16 with likely PSBO d/t food stuck at the JJ. Likely ate the carrots without chewing well and too fast/too much stage 2 diet as tolerated continue iv fluids until tolerating change zofran to q6 prn nausea try decadron x 1 dose add protonix daily - gi ppx lovenox - dvt ppx nutrition consult for re-education encouraged oob/ambulation check labs willl d/w Core Measures/Miscellaneous Venous Thromboembolism VTE Risk Factors: Obesity, Surgery VTE Contraindications: No Contraindications VTE Diagnosis: No VTE Type: NONE VTE Confirmed by (Test): NONE Beta Danyel Is Beta Danyel a Home Med? No Antibiotics Is Patient on Antibiotics? No
[2016-09-27 06:48] VITALS: BP 99/48
[2016-09-27 07:34] LABS: ABSOLUTE EOSINOPHIL COUNT 0.2 /CUMM (0.0-0.7); ABSOLUTE GRANULOCYTE CT 1.5 /CUMM (1.4-6.5); ABSOLUTE MONOCYTE COUNT 0.4 /CUMM (0.10-0.60); MEAN CORPUSCULAR HGB 29.1 PG (27.0-31.0); RBC DISTRIBUTION WIDTH 13.4 % (11.5-14.5)
[2016-09-27 07:38] LABS: ABSOLUTE BASOPHIL COUNT 0.1 /CUMM (0.0-0.2); ABSOLUTE LYMPH COUNT 2.4 /CUMM (1.2-3.4); BASOPHIL % 1.2 % (0.0-2.0); EOSINOPHIL % 5.2 % (0-5); GRANULOCYTE % 32.2 % (42.2-75.2); MEAN CORPUSCULAR HGB CONC 33.2 G/DL (33.0-37.0); MEAN CORPUSCULAR VOLUME 87.6 FL (81.0-99.0); MEAN PLATELET VOLUME 8.8 FL (7.4-10.4); PLATELET COUNT 325 /CUMM (130-400); RED BLOOD CELL CT 4.49 /CUMM (4.20-5.40); WHITE BLOOD CELL COUNT 4.6 /CUMM (4.8-10.8)
[2016-09-27 07:39] LABS: HEMATOCRIT 39.4 % (37-47)
--- NOTE | 2016-09-27 14:00 | Patient Discharge Instructions ---
Discharge Instructions General Discharge Information You were seen/treated for: partial small bowel obstruction s/p gastric bypass (09/11/16) You had these procedures: bowel rest Watch for these problems: fever>101.3, increased pain, nausea/vomiting Diet Continue normal diet: No Recommended Diet: Bariatric Additional DIET Information: closely follow dietary recommendations Activity Full Activity/No Limits: No Activity Self Limited: Yes Pounds, do NOT lift more than: 10 Acute Coronary Syndrome Inclusion Criteria At DC or during hospital stay patient has or had the following: ACS DIAGNOSIS No Discharge Core Measures Meds if any: Prescribed or Continued at Discharge Meds if any: NOT Prescribed or Continued at Discharge Congestive Heart Failure Inclusion Criteria At DC or during hospital stay patient has or had the following: CHF DIAGNOSIS No Discharge Core Measures Meds if any: Prescribed or Continued at Discharge Meds if any: NOT Prescribed or Continued at Discharge Cerebrovascular accident Inclusion Criteria At DC or during hospital stay patient has or had the following: CVA/TIA Diagnosis No Discharge Core Measures Meds if any: Prescribed or Continued at Discharge Meds if any: NOT Prescribed or Continued at Discharge Venous thromboembolism Inclusion Criteria VTE Diagnosis No VTE Type NONE VTE Confirmed by (Test) NONE Discharge Core Measures - Per Current guidelines, there needs to be overlap - treatment for the first 5 days of Warfarin therapy. - If discharged on Warfarin prior to 5 days of - overlap therapy, the patient will need to be - assessed for post discharge needs including - *Post discharge parental anticoagulation - *Warfarin and/or parental anticoagulation education - *Follow up date to check INR post discharge At least 5 days overlap therapy as Inpatient No Meds if any: Prescribed or Continued at Discharge Note: Overlap Therapy is Warfarin and Anticoagulant Meds if any: NOT Prescribed or Continued at Discharge
--- NOTE | 2016-09-27 14:03 | Surg Short-stay <48hrs Dis Sum ---
Visit Information Visit Dates Admission Date: 09/26/16 Discharge Date: 10/01/16 Surgical Short Stay DC Summary Admission Diagnosis: partial small bowel obstruction s/p gastric bypass (09/11/16) Final Diagnosis: same as above Procedure(s): bowel rest, medications Summary/Significant Findings: 2 week s/p LRYGB. Patient states she was making chicken and carrots in the crock pot and ate the carrots (which were soft) and subsequently developed pain/N/V. AVSS. Abd-soft. Labs ok. CT scan - likely a PSBO d/t food stuck at the JJ. Likely ate the carrots without chewing well and too fast/too much. AXR showed all contrast in colon without dilated small bowel. She was started on bariatric Stage 2 diet, and nutrition was asked to provide dietary re-education. Condition at Discharge: stable Discharge Disposition: home or self care Discharge instructions provided to patient/family: Yes Post discharge follow-up plan: dietary re-education done prior to discharge call to schedule follow up appointment
[2016-09-27 14:07] VITALS: BP 106/70
[2016-09-27 22:52] VITALS: BP 115/76
[2016-09-28 07:41] VITALS: BP 117/66
[2016-09-28 07:59] LABS: ABSOLUTE BASOPHIL COUNT 0 /CUMM (0.0-0.2); ABSOLUTE EOSINOPHIL COUNT 0 /CUMM (0.0-0.7); ABSOLUTE GRANULOCYTE CT 4.3 /CUMM (1.4-6.5); ABSOLUTE LYMPH COUNT 1.5 /CUMM (1.2-3.4); ABSOLUTE MONOCYTE COUNT 0.4 /CUMM (0.10-0.60); BASOPHIL % 0.3 % (0.0-2.0); EOSINOPHIL % 0.3 % (0-5); HEMATOCRIT 36.4 % (37-47); MEAN CORPUSCULAR HGB CONC 32.8 G/DL (33.0-37.0); MEAN CORPUSCULAR VOLUME 88.4 FL (81.0-99.0); MEAN PLATELET VOLUME 9.1 FL (7.4-10.4); PLATELET COUNT 315 /CUMM (130-400); RBC DISTRIBUTION WIDTH 13.7 % (11.5-14.5); RED BLOOD CELL CT 4.12 /CUMM (4.20-5.40); WHITE BLOOD CELL COUNT 6.2 /CUMM (4.8-10.8)
[2016-09-28 08:08] LABS: GRANULOCYTE % 69.1 % (42.2-75.2)
--- NOTE | 2016-09-28 11:02 | PN- Bariatrics ---
Subjective Subjective: Reports some continued abdominal discomfort and occasional nausea. Had bowel movement last night, states that it is more formed than previous. Has been passing flatus. No longer vomiting since admission. No difficulty urinating. Denies dizziness. No shortness of breath. No chest pains. Objective Vital Signs and I&Os Vital Signs Date Time Temp Pulse Resp B/P Pulse O2 O2 Flow FiO2 Ox Delivery Rate 09/28 0741 97.9 80 20 117/66 97 Room Air 09/28 0240 71 94 09/28 0000 CPAP 09/27 2252 98.3 84 18 115/76 98 Room Air 09/27 1407 98.4 70 18 106/70 98 Room Air Intake & Output 09/28 1600 09/28 0800 09/28 0000 09/27 1600 09/27 0800 09/27 0000 Intake Total 490 392 0523 920 1060 Output Total 300 Balance 065 257 8273 920 760 Intake, IV 600 300 700 800 700 Intake, Oral 240 120 400 120 360 Number 2 2 1 Bowel Movements Output, Stool 300 Patient 275 lb Weight Physical Exam: General: AAOx3, no acute distress Cardiac: RRR, s1s2 Pulmonary: C TA bialterally Abdomen: Softly distendedd,t daron with palpation in epigastric area Extremities: Moves all extremities, distal sensation intact. Calves soft and non-tender Assessment/Plan Assessment/Plan This is a 30 year old female who is HD 2 with abdominal pain, nausea and vomitting, is s/p laparoscopic gastric bypass 09/11/2016 -Carafate 1g liquid q6 -Reglan 10 mg q8 -Continue stage 1 -Will consider abdominal xrays friday if symptoms persist, will consider diagnositic laparoscopy early next week pending findings -Discussed with Dr. Dorado Core Measures/Miscellaneous Venous Thromboembolism VTE Risk Factors: Obesity, Surgery VTE Contraindications: No Contraindications VTE Diagnosis: No VTE Type: NONE VTE Confirmed by (Test): NONE Beta Danyel Is Beta Danyel a Home Med? No Antibiotics Is Patient on Antibiotics? No
[2016-09-28 13:54] VITALS: BP 118/80
[2016-09-28 22:16] VITALS: BP 100/60
[2016-09-29 06:56] LABS: ABSOLUTE BASOPHIL COUNT 0 /CUMM (0.0-0.2); ABSOLUTE EOSINOPHIL COUNT 0.2 /CUMM (0.0-0.7); ABSOLUTE GRANULOCYTE CT 1.9 /CUMM (1.4-6.5); ABSOLUTE LYMPH COUNT 3.3 /CUMM (1.2-3.4); ABSOLUTE MONOCYTE COUNT 0.4 /CUMM (0.10-0.60); BASOPHIL % 0.6 % (0.0-2.0); HEMATOCRIT 34.7 % (37-47); MEAN CORPUSCULAR HGB 28.8 PG (27.0-31.0); MEAN CORPUSCULAR HGB CONC 32.5 G/DL (33.0-37.0); MEAN CORPUSCULAR VOLUME 88.6 FL (81.0-99.0); MEAN PLATELET VOLUME 8.5 FL (7.4-10.4); PLATELET COUNT 299 /CUMM (130-400); RBC DISTRIBUTION WIDTH 13.8 % (11.5-14.5); RED BLOOD CELL CT 3.92 /CUMM (4.20-5.40)
[2016-09-29 07:06] LABS: GRANULOCYTE % 31.9 % (42.2-75.2)
[2016-09-29 07:30] LABS: WHITE BLOOD CELL COUNT 5.8 /CUMM (4.8-10.8)
[2016-09-29 07:31] VITALS: BP 100/50
--- NOTE | 2016-09-29 09:04 | PN- Bariatrics ---
Subjective Subjective: Patient is no longer vomiting, but reports no appetite. She is able tolerate water, but other liquids do cause a little bit of nausea. No flatus or BM since 2 days ago. Continues to complain of left-sided and epigastric abdominal discomfort, 7 out of 10, which is unchanged since admission. She ambulates minimally in the room, but states that she is unable to tolerate long walks due to feeling somewhat short of breath. She denies chest pain or shortness of breath at rest. Also denies headache and dizziness. Objective Vital Signs and I&Os Vital Signs Date Time Temp Pulse Resp B/P Pulse O2 O2 Flow FiO2 Ox Delivery Rate 09/29 0731 97.4 55 18 100/50 98 CPAP 09/29 0018 78 98 09/29 0000 CPAP 09/28 2216 98.8 60 19 100/60 98 CPAP 09/28 2213 60 98 09/28 1354 98.2 78 20 118/80 98 Room Air Intake & Output 09/29 1600 09/29 0800 09/29 0000 09/28 1600 09/28 0800 09/28 0000 Intake Total 800 1450 1140 840 420 Output Total 300 400 700 Balance 500 1050 440 840 420 Intake, IV 800 800 800 600 300 Intake, Oral 650 340 240 120 Number 0 2 Bowel Movements Output, Urine 300 400 700 Physical Exam: Gen.: Patient is resting, but easily arousable. No acute distress. Cardiac: Regular Pulmonary: Lungs are clear bilaterally. Abdomen: Soft and nondistended. There is mild tenderness to palpation in the left mid abdominal area. Otherwise nontender. Normal bowel sounds are heard. Extremities: No significant lower extremity edema or calf tenderness are appreciated bilaterally. Results Last 48 Hours of Labs: Laboratory Tests 09/29 09/28 0607 0610 Chemistry Sodium (137 - 145 mmol/L) 137 141 Potassium (3.5 - 5.1 mmol/L) 3.2 L 3.9 Chloride (98 - 107 mmol/L) 110 H 111 H Carbon Dioxide (22 - 30 mmol/L) 24 21 L Anion Gap (5 - 16) 3 L 9 BUN (7 - 17 mg/dL) 4 L 4 L Creatinine (0.5 - 1.0 mg/dL) 0.8 0.7 Estimated GFR (>60 ml/min) > 60 > 60 BUN/Creatinine Ratio (7 - 25 %) 5.0 L 5.7 L Phosphorus (2.5 - 4.5 mg/dL) 3.7 Magnesium (1.6 - 2.3 mg/dL) 1.8 Hematology CBC w Diff NO MAN DIFF REQ NO MAN DIFF REQ WBC (4.8 - 10.8 /CUMM) 5.8 6.2 RBC (4.20 - 5.40 /CUMM) 3.92 L 4.12 L Hgb (12.0 - 16.0 G/DL) 11.3 L 11.9 L Hct (37 - 47 %) 34.7 L 36.4 L MCV (81.0 - 99.0 FL) 88.6 88.4 MCH (27.0 - 31.0 PG) 28.8 29.0 RDW (11.5 - 14.5 %) 13.8 13.7 Plt Count (130 - 400 /CUMM) 299 315 MPV (7.4 - 10.4 FL) 8.5 9.1 Gran % (42.2 - 75.2 %) 31.9 L 69.1 Lymphocytes % (20.5 - 51.1 %) 56.7 H 24.6 Monocytes % (1.7 - 9.3 %) 6.8 5.7 Eosinophils % (0 - 5 %) 4.0 0.3 Basophils % (0.0 - 2.0 %) 0.6 0.3 Absolute Granulocytes (1.4 - 6.5 /CUMM) 1.9 4.3 Absolute Lymphocytes (1.2 - 3.4 /CUMM) 3.3 1.5 Absolute Monocytes (0.10 - 0.60 /CUMM) 0.4 0.4 Absolute Eosinophils (0.0 - 0.7 /CUMM) 0.2 0 Absolute Basophils (0.0 - 0.2 /CUMM) 0 0 PUBS MCHC (33.0 - 37.0 G/DL) 32.5 L 32.8 L Assessment/Plan Assessment/Plan Patient is a 30-year-old female with a history of morbid obesity, sleep apnea, and migraines who is status post laparoscopic gastric bypass on 09/11/2016, now hospital day #3 with nausea and vomiting. Imaging revealed passage of contrast down to the rectum. Plan: -Continue Carafate and Reglan [id number]. -Continue stage I bariatric diet as tolerated. -Continue IV fluids until tolerating at her oral intake. Replete K and add to maintenance fluids. -Lovenox for DVT prophylaxis. Encourage ambulation. -Patient admitted to some shortness of breath with ambulation, but is asymptomatic at rest and saturations have been stable. Continue to monitor sats closely. -Consider reimaging tomorrow or Friday. -Will discuss with attending. Core Measures/Miscellaneous Venous Thromboembolism VTE Risk Factors: Obesity, Surgery VTE Contraindications: No Contraindications VTE Diagnosis: No VTE Type: NONE VTE Confirmed by (Test): NONE Beta Danyel Is Beta Danyel a Home Med? No Antibiotics Is Patient on Antibiotics? No
[2016-09-29 14:00] VITALS: BP 128/70
[2016-09-29 22:44] VITALS: BP 106/62
[2016-09-30 06:18] VITALS: BP 110/72
--- NOTE | 2016-09-30 07:14 | PN- Bariatrics ---
Subjective Subjective: The patient was seen this morning. She still complains of epigastric abdominal pain which is pretty much unchanged since admission. She denies any nausea overnight and her last bowel movement was yesterday during the daytime. She has no other complaints the current time and is ambulating adequately. Objective Vital Signs and I&Os Vital Signs Date Time Temp Pulse Resp B/P Pulse O2 O2 Flow FiO2 Ox Delivery Rate 09/30 06 98.4 63 20 110/72 95 09/30 0003 79 95 09/30 0000 CPAP 09/29 2244 98.3 60 18 106/62 98 Room Air 09/29 2211 72 98 09/29 1400 98.1 80 20 128/70 97 Room Air 09/29 0931 20 96 Room Air 09/29 0731 97.4 55 18 100/50 98 CPAP Intake & Output 09/30 0800 09/30 0000 09/29 1600 09/29 0800 09/29 0000 09/28 1600 Intake Total 800 1100 933 788 2158 1140 Output Total 300 450 450 300 400 700 Balance 500 650 898 462 5620 440 Intake, IV 800 800 600 800 800 800 Intake, Oral 0 300 240 650 340 Number 2 0 0 Bowel Movements Output, Urine 300 450 450 300 400 700 Physical Exam: Gen.: Alert and in no obvious distress Skin: Warm and dry Abdomen: Soft, obese, moderate epigastric and left upper quadrant tenderness without rebound or guarding, bowel sounds positive. Extremities: Bilateral lower extremities are warm without calf tenderness or significant edema. Assessment/Plan Assessment/Plan Assessment: 30-year-old female status post laparoscopic gastric bypass earlier this month who continues to have intermittent nausea, abdominal pain, and loose bowel movements. Plan: The patient has been nothing by mouth for an upper GI series with small bowel follow-through this morning Follow-up morning laboratory studies Continue IV hydration PRN antiemetics, antipyretics, and pain medications GI and DVT prophylaxis Out of bed and ambulate Incentive spirometry Core Measures/Miscellaneous Venous Thromboembolism VTE Risk Factors: Obesity, Surgery VTE Contraindications: No Contraindications VTE Diagnosis: No VTE Type: NONE VTE Confirmed by (Test): NONE Beta Danyel Is Beta Danyel a Home Med? No Antibiotics Is Patient on Antibiotics? No
--- NOTE | 2016-09-30 15:01 | RADIOLOGY REPORT ---
EXAMINATION: FLUOROSCOPY UPPER GI, SINGLE CONTRAST, WITH KUB. FLUOROSCOPY SMALL BOWEL SERIES. CLINICAL INFORMATION: Status post gastric bypass surgery 09/11/2016. Please evaluate for obstruction. Patient complaining of nausea and abdominal pain. COMPARISON: KUB dated 09/26/2016. CT scan of the abdomen and pelvis dated 09/26/2016. Gastrografin upper GI exam from 09/12/2016. TECHNIQUE: Initial KUB was performed in 2 parts. An single contrast upper GI study was performed with the patient in the upright and supine positions, followed by a small bowel series. Multiple spot films were acquired. FINDINGS: KUB: Post operative odette are seen in the epigastric region and in the left upper quadrant. There is some residual contrast outlining the colon. Normal bowel gas pattern is seen with no abnormal distention of bowel loops noted. Bony structures are normal. UGI/small bowel series: The oropharyngeal phase of swallowing is normal with no laryngeal or nasopharyngeal aspiration seen. Esophageal distensibility and motility is normal. The GE junction is located below the level of the diaphragm and no GE reflux seen. The patient is status post gastric bypass surgery. The remnant gastric pouch appears normal with no abnormal distention or evidence of contrast leak seen. No gastric outlet obstruction is seen and the anastomosed small bowel loops are unremarkable. Previously seen distention of the proximal small bowel loops in the left upper quadrant is no longer visualized and small bowel including at the level of the jejunojejunal anastomosis in the left upper quadrant are normal in caliber and unremarkable. Small bowel transit time is 90 minutes. Small bowel loops are normal in caliber and appearance, including the terminal ileum. Of note, there is extension of small bowel loops to the right side of the ascending colon without definite hernia formation appreciated. FLUOROSCOPY TIME: 1 minute 48 seconds. IMPRESSION: 1. Status post gastric bypass surgery with no complications seen. 2. No evidence of bowel obstruction. Previously identified appearance of the dilated proximal small bowel loops is not reproduced on this exam.
[2016-09-30 15:13] VITALS: BP 126/78
[2016-09-30 22:35] VITALS: BP 100/57
[2016-10-01 06:13] VITALS: BP 99/62
--- NOTE | 2016-10-01 07:16 | PN- Bariatrics ---
Subjective Subjective: The patient was seen this morning. She reports feeling much better than the day prior with only minimal abdominal pain this morning. She is tolerating a bariatric stage II diet without nausea and moved her bowels yesterday. She is eager to try to go home today if feeling well. She has no other complaints at the current time. Objective Vital Signs and I&Os Vital Signs Date Time Temp Pulse Resp B/P Pulse O2 O2 Flow FiO2 Ox Delivery Rate 10/01 0613 98.5 66 18 99/62 97 CPAP 10/01 0357 58 96 10/01 0151 78 95 09/30 2256 98 09/30 2235 98.5 60 18 100/57 96 Room Air 09/30 1513 97.7 70 20 126/78 99 Room Air Intake & Output 10/01 0800 10/01 0000 09/30 1600 09/30 0800 09/30 0000 09/29 1600 Intake Total 520 390 501 680 0086 840 Output Total 300 450 450 Balance 520 390 990 500 650 390 Intake, IV 400 150 750 800 800 600 Intake, Oral 120 240 240 0 300 240 Number 0 2 0 Bowel Movements Output, Urine 300 450 450 Physical Exam: Gen.: Alert and in no obvious distress Skin: Warm and dry Abdomen: Soft, obese, mild and improved epigastric/left upper quadrant tenderness without rebound or guarding. Bowel sounds are positive. Extremities: Bilateral lower extremities are warm without calf tenderness or significant edema. Assessment/Plan Assessment/Plan Assessment: 30-year-old female with a history of a gastric bypass who presented to the hospital with obstructive symptoms is now currently improved. The patient's pain is minimal and she is tolerating a stage II diet without nausea. Her bowel function has returned to an acceptable level. Plan: Hep-Lock IV fluids Continue bariatric stage II diet Out of bed ambulate GI and DVT prophylaxis Possible discharge home later today if can take in adequate by mouth without nausea or increased pain. Core Measures/Miscellaneous Venous Thromboembolism VTE Risk Factors: Obesity, Surgery VTE Contraindications: No Contraindications VTE Diagnosis: No VTE Type: NONE VTE Confirmed by (Test): NONE Beta Danyel Is Beta Danyel a Home Med? No Antibiotics Is Patient on Antibiotics? No
[2016-10-01] MEDS ORDERED: COLACE100 M1 PO (07:29)
== END 2016-10-01 11:40 | DRG 252 ==
LOC: ENRESERVTM → ENRESERVDT → ERH 00:47 → ENPENDDIS 03:41 → 2NB 03:41 → ERHI 03:41 → 2NB 08:06
PROVIDERS: Emergency Medicine; Nurse Practitioner; Physician Assistant; Physician Assistant Surgical; ADMIT Surgery
DX: K91.3 Postprocedural intestinal obstruction (principal); Z68.41 Body mass index [BMI] 40.0-44.9, adult; E66.9 Obesity, unspecified; Z71.3 Dietary counseling and surveillance; J45.909 Unspecified asthma, uncomplicated; G47.33 Obstructive sleep apnea (adult) (pediatric); K21.9 Gastro-esophageal reflux disease without esophagitis
CPT/HCPCS: 2NBSP; 36415; 74020; 74177; 74245; 82436; 93005; 93010; 96361; 96374; 96375; 96376; J1650; J2405; J2765; J3490; J7042